=== PATIENT | male | born 1940 | race African-American/Black ===

== ENCOUNTER 2017-11-06 09:17 | Emergency (ER) | payer MEDICARE, OTHER ==
[~2017-11-06 09:17] MED LIST: AMLO10TA2 PO; CELE100C PO; DICL100G18 TP; LISI1TAB5 PO; LISI40TA PO; METO-247 PO; OXYM10TA28 PO; OXYM40TA17 PO
[2017-11-06] MEDS ORDERED: oxyCODONE/APAP 10/325 1 TAB TABLET PO ONE (10:10)
[2017-11-06 10:51] LABS: BASO % 0 % (0-3); EOS % 0 % (0-3); HEMATOCRIT 40.9 % (39.0-53.0); HEMOGLOBIN 13.6 g/dL (13.0-17.5); LYMPH % 12 % (24-48); MEAN CORPUSCULAR HEMOGLOBIN 28 pg (25-35); MEAN CORPUSCULAR HGB CONC 33 g/dL (31-37); MEAN CORPUSCULAR VOLUME 84 fL (79-100); MONO # 1.3 x10^3/uL (0.0-1.1); MONO % 17 % (0-9); NEUT # 5.4 x10^3uL (1.8-7.7); NEUT % 70 % (31-73); PLATELET COUNT 301 x10^3/uL (140-400); RED BLOOD COUNT 4.88 x10^6/uL (4.30-5.70); RED CELL DISTRIBUTION WIDTH 17.2 % (11.5-14.5); WHITE BLOOD COUNT 7.7 x10^3/uL (4.0-11.0)
[2017-11-06 10:58] LABS: C REACTIVE PROTEIN 88.3 mg/L (0-3.3); URIC ACID 5.7 mg/dL (3.5-7.2)
--- NOTE | 2017-11-06 11:02 | RAD ---
Indication: Left wrist pain and swelling since Monday. No known injury TECHNIQUE: 3 views of the left wrist. Please note that images are marked right however the left wrist was imaged per technologist. COMPARISON: None FINDINGS: Mild diffuse osteopenia. No acute fracture or dislocation. Moderate joint space narrowing and productive changes are seen at first CMC joint. No soft tissue abnormality. IMPRESSION: Moderate first CMC joint osteoarthritis. Electronically signed by: Thaddeus Trivedi DO (11/06/2017 10:59 AM) [facility]
[2017-11-06 11:05] LABS: ALBUMIN 3.3 g/dL (3.4-5.0); ALBUMIN/GLOBULIN RATIO 0.7 (1.0-1.7); CREATININE 0.9 mg/dL (0.7-1.3); GFR 99.5; TOTAL BILIRUBIN 0.8 mg/dL (0.2-1.0)
[2017-11-06 11:06] LABS: POTASSIUM 2.7 mmol/L (3.5-5.1)
[2017-11-06] MEDS ORDERED: FUROSEMIDE 40 MG/4 ML VIAL IVP ONE (11:30)
[2017-11-06] MEDS ORDERED: POTASSIUM CHLORIDE 20 MEQ TABLET.ER. PO ONE (11:45)
--- NOTE | 2017-11-06 11:48 | RAD ---
Left upper extremity venous duplex study Clinical History: Left upper extremity pain Technique: Using a combination of real time ultrasound imaging and color-flow and pulse Doppler imaging techniques, including spectral analysis, graded compression and augmentation, duplex evaluation of the deep venous system of the left upper extremity was performed. Multiple images were obtained. Findings: There is no sonographic evidence of deep venous thrombosis involving the visualized deep venous structures of the left upper extremity Impression: No evidence of deep venous thrombosis involving the left upper extremity Electronically signed by: Lucas Saldivar MD (11/06/2017 11:44 AM) [id number]
--- NOTE | 2017-11-06 11:49 | ED.ADGEN ---
Past History Past Medical History: Hypertension Past Surgical History: No Surgical History Alcohol Use: None Drug Use: None Adult General Chief Complaint Chief Complaint Left wrist pain, swelling. HPI HPI Patient is a 77-year-old Afro-Citizen Of [place] male presents with left wrist pain tenderness and swelling starting yesterday. Patient states he first noted symptoms yesterday after sleeping on left wrist. Reports increased pain swelling progressing to distal forearm. She swelling tenderness with pain on palpation and range of motion. Denies fall, injury, history of gout, rheumatoid arthritis or other inflammatory conditions. No history of DVT or PE. Currently on Coumadin. No fevers chills, nausea vomiting or sweats. No other acute symptoms or complaints.[] Review of Systems Review of Systems Review symptoms as per history of present illness. All other review symptoms are negative.] All other systems were reviewed and found to be within normal limits, except as documented in this note. Current Medications Current Medications Current Medications Medications (Trade) Dose Ordered Sig/Dionisio Start Time Stop Time Status Last Admin Dose Admin Furosemide (Lasix) 40 mg 1X ONCE 11/06/17 11:30 11/06/17 11:31 DC Oxycodone/ Acetaminophen (Percocet 10/325) 1 tab 1X ONCE 11/06/17 10:10 11/06/17 10:11 DC 11/06/17 10:13 1 TAB Potassium Chloride (Klor-Con) 40 meq 1X ONCE 11/06/17 11:45 11/06/17 11:46 Allergies Allergies Allergies Coded Allergies Type Severity Reaction Last Updated Verified penicillin Adverse Reaction Intermediate 04/03/15 Yes Physical Exam Physical Exam Constitutional: Well developed, well nourished, no acute distress, non-toxic appearance. [] HENT: Normocephalic, atraumatic, bilateral external ears normal, oropharynx moist, no oral exudates, nose normal. [] Eyes: PERRLA, EOMI, conjunctiva normal, no discharge. [] Neck: Normal range of motion, no tenderness, supple, no stridor. [] Cardiovascular:Heart rate regular rhythm, no murmur [] Lungs & Thorax: Bilateral breath sounds clear to auscultation [] Abdomen: Bowel sounds normal, soft, no tenderness, no masses, no pulsatile masses. [] Skin: Appropriate for ethnicity. [] Back: No tenderness, no CVA tenderness. [] Extremities: Left upper extremity, diffuse left wrist pain, swelling, tenderness , with pain range of motion. Swelling spreads to hand and to distal forearm. Also has left shoulder and elbow pain, tenderness. Radial pulse 2+ and symmetric.. [] Neurologic: Alert and oriented X 3, left upper extremity, no motor weakness or loss of sensation.[] Psychologic: Affect normal, judgement normal, mood normal. [] Current Patient Data Vital Signs Vital Signs Date Time Temp Pulse Resp B/P (MAP) Pulse Ox O2 Delivery O2 Flow Rate FiO2 11/06/17 09:34 99.0 94 24 99 Room Air Lab Results Laboratory Tests Test 11/06/17 10:30 White Blood Count 7.7 x10^3/uL (4.0-11.0) Red Blood Count 4.88 x10^6/uL (4.30-5.70) Hemoglobin 13.6 g/dL (13.0-17.5) Hematocrit 40.9 % (39.0-53.0) Mean Corpuscular Volume 84 fL (79-100) Mean Corpuscular Hemoglobin 28 pg (25-35) Mean Corpuscular Hemoglobin Concent 33 g/dL (31-37) Red Cell Distribution Width 17.2 % (11.5-14.5) H Platelet Count 301 x10^3/uL (140-400) Neutrophils (%) (Auto) 70 % (31-73) Lymphocytes (%) (Auto) 12 % (24-48) L Monocytes (%) (Auto) 17 % (0-9) H Eosinophils (%) (Auto) 0 % (0-3) Basophils (%) (Auto) 0 % (0-3) Neutrophils # (Auto) 5.4 x10^3uL (1.8-7.7) Lymphocytes # (Auto) 1.0 x10^3/uL (1.0-4.8) Monocytes # (Auto) 1.3 x10^3/uL (0.0-1.1) H Eosinophils # (Auto) 0.0 x10^3/uL (0.0-0.7) Basophils # (Auto) 0.0 x10^3/uL (0.0-0.2) Sodium Level 134 mmol/L (136-145) L Potassium Level 2.7 mmol/L (3.5-5.1) *L Chloride Level 94 mmol/L (98-107) L Carbon Dioxide Level 33 mmol/L (21-32) H Anion Gap 7 (6-14) Blood Urea Nitrogen 9 mg/dL (8-26) Creatinine 0.9 mg/dL (0.7-1.3) Estimated GFR (Cockcroft-Gault) 99.5 BUN/Creatinine Ratio 10 (6-20) Glucose Level 184 mg/dL (70-99) H Uric Acid 5.7 mg/dL (3.5-7.2) Calcium Level 9.0 mg/dL (8.5-10.1) Total Bilirubin 0.8 mg/dL (0.2-1.0) Aspartate Amino Transferase (AST) 23 U/L (15-37) Alanine Aminotransferase (ALT) 21 U/L (16-63) Alkaline Phosphatase 146 U/L (46-116) H C-Reactive Protein 88.3 mg/L (0-3.3) H IN-Uvr-P-Type Natriuretic Peptide 1218 pg/mL (0-449) H Total Protein 8.0 g/dL (6.4-8.2) Albumin 3.3 g/dL (3.4-5.0) L Albumin/Globulin Ratio 0.7 (1.0-1.7) L EKG EKG [] Radiology/Procedures Radiology/Procedures [L Wrist: No acute findings per radiology report] Venous Doppler ultrasound left upper extremity: Negative for DVT Course & Med Decision Making Course & Med Decision Making Pertinent Labs and Imaging studies reviewed. (See chart for details) [Wrist pain, tenderness, warmth and swelling with elevated inflammatory markers , concern for septic arthritis versus reactive inflammatory joint disease. Patient will be transferred to [facility] with anticipated join aspiration. Decisions was made to hold antibiotics will orthopedic evaluation/ join aspiration.Potassium replaced. Dr. Hughes on-call for the hospitalist service agrees to accept to hospitalist service. Final Impression Final Impression [1. Left wrist swelling 2. hypokalemia] Dragon Disclaimer Dragon Disclaimer This electronic medical record was generated, in whole or in part, using a voice recognition dictation system. PAULIE VALENZUELA DO Nov 06, 2017 11:48
[2017-11-06 12:23] VITALS: BP 200/109
[2017-11-06] MEDS ORDERED: cloNIDine HCL 0.1 MG TABLET PO ONE (12:45)
--- NOTE | 2017-11-06 15:43 | EKG ---
[address] [address] Test Date: 2017-11-06 Test Time: 10:35:00 Pat Name: KALI POSADAS Department: Room: Gender: M Director Strategy: SANDRA : 1940 Requested By: PAULIE VALENZUELA Order Number: [id number] Reading MD: Chau Leal Measurements Intervals [place] Rate: 77 P: 32 NE: 126 QRS: -56 QRSD: 90 T: -48 QT: 398 QTc: 452 Interpretive Statements SINUS RHYTHM LEFT ATRIAL ABNORMALITY ABNORMAL LEFT AXIS DEVIATION LEFT ANTERIOR FASCICULAR BLOCK QRS(T) CONTOUR ABNORMALITY CONSISTENT WITH SEPTAL INFARCT PROBABLY OLD T ABNORMALITY IN ANTEROLATERAL LEADS INFERIOR LEADS ABNORMAL ECG RI6.01 Compared to ECG 04/03/2015 14:47:01 Electronically Signed On 11-08-2017 12:48:41 CDT by Chau Leal
== END 2017-11-06 13:50 | disposition short-term general hospital (02) ==
LOC: ER 09:17
DX: R22.32 Localized swelling, mass and lump, left upper limb (principal); M25.532 Pain in left wrist; E87.6 Hypokalemia; M25.512 Pain in left shoulder; M25.522 Pain in left elbow; I10 Essential (primary) hypertension; Z88.0 Allergy status to penicillin
CPT/HCPCS: 36415; 73110; 80053; 83880; 84550; 85025; 86140; 93005; 93971; 96374; 99285; J1940

== ENCOUNTER → 2018-08-13 | Outpatient (CLI) | payer MEDICARE, OTHER ==
[~2018-08-13] MED LIST changes: -AMLO10TA2 PO; +AMLO10TA8 PO
--- NOTE | 2018-08-13 13:44 | RAD ---
Ultrasound arterial Doppler INDICATION: Bilateral lower extremity pain, pvd TECHNIQUE: Grayscale, color Doppler and spectral waveform ultrasound images of the lower extremities arteries obtained. COMPARISON: None FINDINGS: Right-sided: Biphasic waveforms are seen in the PSYCHOLOGY TECHNICIAN and profunda femoral artery without significantly elevated velocity. Monophasic waveforms are seen in the SFA without significant velocities. Monophasic waveforms seen in the popliteal artery, ENVIRONMENTAL HEALTH INSPECTOR, peroneal artery and CLAUDIA without elevated velocity. Significantly dampened waveforms are seen in the dorsalis pedis artery. Left side: Prominent but not pathologically enlarged left groin lymph nodes are seen likely reactive. Biphasic waveforms are seen in the PSYCHOLOGY TECHNICIAN and profunda femoris artery without elevated velocity. Biphasic waveforms are seen in the SFA without elevated velocity. Biphasic waveforms are seen in the popliteal artery without elevated velocity. Biphasic waveforms seen in the CLAUDIA with mildly elevated velocity of 214 cm/s. Monophasic waveforms are seen in the PDA without elevated velocity. Monophasic waveforms are seen in the peroneal artery without elevated velocity. There is reversal of flow seen in the dorsalis pedis artery with velocity of 37 cm/s. This is new from previous exam. KAYLAH: Right KAYLAH 0.74. Left KAYLAH 0.68. IMPRESSION: 1. 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 Moderate focal stenosis in the proximal left CLAUDIA. 2. New reversal of waveform in the left dorsalis pedis artery. 3. Bilateral abnormal KAYLAH. Electronically signed by: Thaddeus Trivedi DO (08/13/2018 1:41 PM) [facility]
--- NOTE | 2018-08-13 13:44 | RAD ---
Ultrasound arterial Doppler INDICATION: Bilateral lower extremity pain, pvd TECHNIQUE: Grayscale, color Doppler and spectral waveform ultrasound images of the lower extremities arteries obtained. COMPARISON: None FINDINGS: Right-sided: Biphasic waveforms are seen in the HOB MILL OPERATOR and profunda femoral artery without significantly elevated velocity. Monophasic waveforms are seen in the SFA without significant velocities. Monophasic waveforms seen in the popliteal artery, CDL PROGRAM COORDINATOR, peroneal artery and CLAUDIA without elevated velocity. Significantly dampened waveforms are seen in the dorsalis pedis artery. Left side: Prominent but not pathologically enlarged left groin lymph nodes are seen likely reactive. Biphasic waveforms are seen in the HOB MILL OPERATOR and profunda femoris artery without elevated velocity. Biphasic waveforms are seen in the SFA without elevated velocity. Biphasic waveforms are seen in the popliteal artery without elevated velocity. Biphasic waveforms seen in the CALUDIA with mildly elevated velocity of 214 cm/s. Monophasic waveforms are seen in the PDA without elevated velocity. Monophasic waveforms are seen in the peroneal artery without elevated velocity. There is reversal of flow seen in the dorsalis pedis artery with velocity of 37 cm/s. This is new from previous exam. KAYLAH: Right KAYLAH 0.74. Left KAYLAH 0.68. IMPRESSION: 1. 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 Moderate focal stenosis in the proximal left CLAUDIA. 2. New reversal of waveform in the left dorsalis pedis artery. 3. Bilateral abnormal KAYLAH. Electronically signed by: Thaddeus Trivedi DO (08/13/2018 1:41 PM) [facility]
== END | disposition home or self-care (01) ==
LOC: US 08:51
PROVIDERS: ATTEND Family Medicine
DX: I70.293 Other atherosclerosis of native arteries of extremities, bilateral legs (principal); I65.22 Occlusion and stenosis of left carotid artery; I77.9 Disorder of arteries and arterioles, unspecified
CPT/HCPCS: 93922; 93925

== ENCOUNTER → 2018-10-16 | Outpatient (CLI) | payer OTHER ==
[~2018-10-16] MED LIST changes: +IOHEXOL 300 MG/ML 75 ML VIAL. IV ONE
--- NOTE | 2018-10-16 18:44 | RAD ---
Renal ultrasound and renal artery Doppler dated 10/16/2018. No comparison available. CLINICAL INDICATION: Hypertension. FINDINGS: Right kidney measures 9 cm in length. Left kidney measures 9.7 cm in length. No hydronephrosis. No apparent mass or shadowing calculus. Color-flow and spectral waveform analysis of the renal arteries show normal velocities and waveforms on the right. The mid left renal artery is not well visualized. The proximal and distal vessel shows normal velocities and waveforms. Renal artery to aortic ratios are within the range of normal measuring 1.8 bilaterally. Urinary bladder unremarkable. IMPRESSION: 1. No evidence of hemodynamically significant renal artery stenosis. 2. Normal grayscale appearance of the kidneys with no evidence of hydronephrosis. Electronically signed by: Eduardo Turcios MD (10/16/2018 6:41 PM) [facility]
--- NOTE | 2018-10-16 22:32 | RAD ---
MR#: [id number] Date of Study: 10/16/2018 Ordering Physician: TOM BROWNING, Referring Physician: TOM BROWNING, Tech: Cathy Harrison RDMS, RVT, RTR APPROVED REPORT Patient Location: OUT-PATIENT Laterality:Bilateral Indications Bruit Grayscale images of the bilateral common carotid, external carotid, internal carotid vessels reveals mild diffuse plaque intimal wall hyperplasia. Spectral waveforms and color Doppler do not reveal any obvious evidence of obstructive disease. Overa ll 0 to less than 50% stenosis by velocity criteria. Normal ICA to CCA ratios bilaterally. Bilateral vertebral velocities are antegrade. Critical Notification Critical Value: No <Conclusion> 1. No significant carotid occlusive disease bilaterally. Signed by : Tom Browning, Electronically Approved : 10/16/2018 22:32:06
== END | disposition home or self-care (01) ==
LOC: US 07:45
PROVIDERS: ATTEND Internal Medicine Cardiovascular Disease
DX: I10 Essential (primary) hypertension (principal); I73.9 Peripheral vascular disease, unspecified
CPT/HCPCS: 76770; 80061; 93880

== ENCOUNTER 2019-07-13 09:15 | Emergency (ER) | payer OTHER ==
[~2019-07-13] VITALS: Ht 180.3 cm; Wt 61.4 kg
[~2019-07-13 09:15] MED LIST changes: -IOHEXOL 300 MG/ML 75 ML VIAL. IV ONE; +LISI1TAB19 PO; -LISI1TAB5 PO
[2019-07-13 09:40] VITALS: BP 139/66
--- NOTE | 2019-07-13 09:51 | PHYS DOC ---
Past History Past Medical History: Hypertension Past Surgical History: No Surgical History Alcohol Use: None Drug Use: None Adult General Chief Complaint Chief Complaint: FOOT INJURY PAIN HPI HPI 79-year-old male presents with right foot pain. The patient has been on long- term pain management with Opana 10mg tablets until May. He tells me his last dose was June 03. He is no longer taking this medication because his doctor left the practice. He has not been to get back in to see a new person. He presents today because he has had increasing right foot pain. Screening last night. He is also concerned as it looks little more swollen than the left. He's had multiple toe amputations and is concerned for infection. He does have open wounds on his fourth and fifth toes on the right foot. Patient primarily uses a power chair to get around. Review of Systems Review of Systems Constitutional: Denies fever or chills [] Eyes: Denies change in visual acuity, redness, or eye pain [] HENT: Denies nasal congestion or sore throat [] Respiratory: Denies cough or shortness of breath [] Cardiovascular: No additional information not addressed in HPI [] GI: Denies abdominal pain, nausea, vomiting, bloody stools or diarrhea [] : Denies dysuria or hematuria [] Musculoskeletal: Right foot and toe pain[] Integument: Denies rash or skin lesions [] Neurologic: Denies headache, focal weakness or sensory changes [] Endocrine: Denies polyuria or polydipsia [] All other systems were reviewed and found to be within normal limits, except as documented in this note. Allergies Allergies Allergies Coded Allergies Type Severity Reaction Last Updated Verified penicillin Adverse Reaction Intermediate 10/16/18 Yes Physical Exam Physical Exam Constitutional: Well developed, well nourished, no acute distress, non-toxic appearance. [] HENT: Normocephalic, atraumatic, bilateral external ears normal, oropharynx moist, no oral exudates, nose normal. [] Eyes: PERRLA, EOMI, conjunctiva normal, no discharge. [] Neck: Normal range of motion, no tenderness, supple, no stridor. [] Cardiovascular:Heart rate regular rhythm, no murmur [] Lungs & Thorax: Bilateral breath sounds clear to auscultation [] Abdomen: Bowel sounds normal, soft, no tenderness, no masses, no pulsatile masses. [] Skin: Warm, dry, no erythema, no rash. [] Back: No tenderness, no CVA tenderness. [] Extremities: Multiple toe amputations of both feet. Right foot with tenderness of second fourth and fifth digit, erythematous, but not warm. The patient's lower extremities are cool to the touch bilaterally.[] Neurologic: Alert and oriented X 3, normal motor function, normal sensory function, no focal deficits noted. [] Psychologic: Affect normal, judgement normal, mood normal. [] EKG EKG [] Radiology/Procedures Radiology/Procedures [] Impressions: EXAM: 3 views of the right toes DATE: 07/13/2019 9:47 AM INDICATION: Diabetic foot ulcer. Soft tissue swelling, pain, clinical concern for osteomyelitis. COMPARISON: No Prior FINDINGS: Moderate soft tissue swelling seen about the forefoot. Amputation changes are seen through the first toe proximal phalanx. No definite erosive/destructive change or periostitis is seen to suggest acute osteomyelitis. No evidence of acute fracture or dislocation. Decreased bone mineral density. Joint spaces are grossly preserved. IMPRESSION: 1. No definite erosive/destructive change or periostitis is seen to suggest acute osteomyelitis. However MRI is more sensitive. Electronically signed by: Misael Rodriguez MD (07/13/2019 10:27 AM) [id number] DICTATED AND SIGNED BY: MISAEL RODRIGUEZ MD DATE: 07/13/19 1027 CC: PAULIE YADAV DO; PCP,NO ~ Course & Med Decision Making Course & Med Decision Making Pertinent Labs and Imaging studies reviewed. (See chart for details) The patient's vital signs and temperature are normal. I am concerned that he is at risk for skin infection. Other than the pain and swelling, I am not fully convinced this is cellulitis. I do believe his risk factors as well as my exam justify prophylactic antibiotics. I will also place the patient on Neurontin as he has not tried this. The pain that he is describing in his foot is "an electrical shooting pain". This may be more related to his diabetes has neuropathy versus infection. He is going to be seen by his doctor on Monday. I believe this is reasonable follow-up unless the patient's condition worsens. If it does, he will return to the emergency room. He is stable for discharge at this time. I will give him his first dose of Neurontin as well as [place] 5/325 in the ED. I will not discharge him on pain medication as he has a doctor who can prescribe this. [] Heladioon Disclaimer Reymundo Disclaimer This electronic medical record was generated, in whole or in part, using a voice recognition dictation system. Departure Departure: Impression: Primary Impression: Neuropathic pain of foot Disposition: HOME, SELF-CARE Condition: STABLE Referrals: PCP,NO (PCP) Patient Instructions: Pain, Neuropathic-Brief Scripts Gabapentin (NEURONTIN ) 300 Mg Capsule 300 MG PO TID for NEUROGENIC PAIN for 30 Days, #90 CAP start with 300mg 1x a day on day 1, then 300mg BID on day 2, then 300mg TID Prov: PAULIE YADAV DO 07/13/19 Problem Qualifiers Primary Impression: Neuropathic pain of foot Laterality: right Qualified Codes: M79.2 - Neuralgia and neuritis, unspecified PAULIE YADAV DO Jul 13, 2019 09:51
--- NOTE | 2019-07-13 10:30 | RAD ---
EXAM: 3 views of the right toes DATE: 07/13/2019 9:47 AM INDICATION: Diabetic foot ulcer. Soft tissue swelling, pain, clinical concern for osteomyelitis. COMPARISON: No Prior FINDINGS: Moderate soft tissue swelling seen about the forefoot. Amputation changes are seen through the first toe proximal phalanx. No definite erosive/destructive change or periostitis is seen to suggest acute osteomyelitis. No evidence of acute fracture or dislocation. Decreased bone mineral density. Joint spaces are grossly preserved. IMPRESSION: 1. No definite erosive/destructive change or periostitis is seen to suggest acute osteomyelitis. However MRI is more sensitive. Electronically signed by: Misael Rodriguez MD (07/13/2019 10:27 AM) [id number]
[2019-07-13] MEDS ORDERED: GABA-586 PO (10:43)
[2019-07-13] MEDS ORDERED: HYDROcodone/APAP 5/325MG 1 TAB TABLET PO ONE (11:00)
[2019-07-13] MEDS ORDERED: GABAPENTIN 100 MG CAPSULE. PO ONE ×2 (11:00→11:06)
[2019-07-13] MEDS ORDERED: HYDR-3165 PO (11:06)
[2019-07-13] MEDS ORDERED: HYDROcodone/APAP 5/325MG 1 TAB TABLET ONE (13:18)
== END 2019-07-13 11:06 | disposition home or self-care (01) ==
LOC: ER 09:15
DX: M79.2 Neuralgia and neuritis, unspecified (principal); M79.671 Pain in right foot; L53.9 Erythematous condition, unspecified; I10 Essential (primary) hypertension; Z88.0 Allergy status to penicillin
CPT/HCPCS: 73660; 99283

== ENCOUNTER → 2019-12-10 | Outpatient (CLI) | payer OTHER ==
[~2019-12-10] MED LIST changes: +GABA-586 PO; +HYDR-3165 PO
--- NOTE | 2019-12-10 09:55 | RAD ---
Right lower extremity arterial ultrasound History:Peripheral arterial disease COMPARISON: August 13, 2018 Findings: Multiple grayscale, color, and duplex spectral analysis sonographic images were acquired of the right lower extremity arteries. There is now patent graft extending beginning at the level of the common femoral artery extending to the mid posterior tibial artery in the calf although monophasic waveforms throughout the graft and also the right common femoral artery. Right peroneal and dorsalis pedis arteries are not seen on this exam although were visualized previously. There are monophasic waveforms of the visualized [place] vessels. Velocities in cm/sec: Common femoral artery 301 (previously 145) Profunda femoris artery 145 Proximal SFA 60 Mid SFA 56 Distal SFA 60 Popliteal artery 143 Posterior tibial artery 36 proximally and 69 distally Peroneal artery not seen Anterior tibial artery 26 Dorsalis pedis artery not seen Graft: Proximal anastomosis 149 Proximal graft 176 Mid thigh region 153 Distal thigh region 139 Level of the knee 133 Proximal calf 41 Distal anastomosis 37 Impression: 1. Common femoral artery to mid posterior tibial artery graft is patent although monophasic waveforms present. There is also monophasic waveform of the right common femoral artery at which there is elevated velocity suggestive of proximal inflow stenosis. Peroneal and dorsalis pedis arteries are not seen and presumably occluded. There are also monophasic waveforms of the [place] vessels. Electronically signed by: Austin Boss MD (12/10/2019 9:53 AM) [id number]
== END ==
LOC: US 07:55
PROVIDERS: ATTEND Physician Assistant Medical
DX: I70.8 Atherosclerosis of other arteries (principal); I73.9 Peripheral vascular disease, unspecified
CPT/HCPCS: 93926

== ENCOUNTER 2021-09-12 19:42 | Emergency (ER) | payer OTHER ==
[~2021-09-12] VITALS: Ht 180.3 cm; Wt 55.3 kg
[~2021-09-12 19:42] MED LIST changes: +AMLO-187 PO; -AMLO10TA8 PO; -LISI1TAB19 PO; +LISI1TAB37 PO; -LISI40TA PO; +LISI40TA6 PO
[2021-09-12] MEDS ORDERED: IOHEXOL 350 MG/ML 100 ML VIAL. IV ONE (20:15)
[2021-09-12] MEDS ORDERED: CONTRAST GIVEN. MC PRN (20:15)
[2021-09-12] MEDS ORDERED: methylPREDNISolone SOD SUCC PF 125 MG/2 ML VIAL. IV ONE (20:15)
--- NOTE | 2021-09-12 20:20 | PHYS DOC ---
Past History Past Medical History: Diabetes, High Cholesterol, Hypertension (GALDINO SCHWARZ APRN) Past Surgical History: Other Additional Past Surgical Histo: back and ulcer sx (GALDINO SCHWARZ APRN) Alcohol Use: None Drug Use: None (GALDINO SCHWARZ APRN) General Adult EDM: Chief Complaint: SHORTNESS OF BREATH HPI: HPI: Patient is a 81-year-old male who presents to the emergency department for a 2- month history of shortness of breath. Patient also reports that he has had right lower extremity swelling. He denies a history of blood clots. He is a current occasional smoker. He reports a history of COPD, hypertension, diabetes and high cholesterol. He denies any home oxygen use. He reports that he used to use inhalers for his COPD but does not have any currently. Patient denies nausea, vomiting, chest pain, fevers, cough. He is tachycardic at 105, tachypneic with a respiration rate of 29, no hypoxia or oxygen requirements. Primary care provider is Dr. Wilder. (GALDINO SCHWARZ APRN) Review of Systems: Review of Systems: Constitutional: See HPI Respiratory: See HPI Cardiovascular: See HPI GI: See HPI Endocrine: See HPI (GALDINO SCHWARZ APRN) Current Medications: Current Meds: Current Medications Medications (Trade) Dose Ordered Sig/Dionisio Start Time Stop Time Status Last Admin Dose Admin Info (Do NOT chart on this entry -- for MONITORING) 1 each PRN DAILY PRN 09/12/21 20:15 09/14/21 20:14 Iohexol (Omnipaque 350 Mg/ml) 100 ml 1X ONCE 09/12/21 20:15 09/12/21 20:16 Methylprednisolone Sodium Succinate (SOLU-Medrol 125MG VIAL) 125 mg 1X ONCE 09/12/21 20:15 09/12/21 20:16 (GALDINO SCHWARZ APRN) Allergies: Allergies: Allergies Coded Allergies Type Severity Reaction Last Updated Verified penicillin Adverse Reaction Intermediate 10/16/18 Yes (GALDINO SCHWARZ APRN) Physical Exam: PE: Constitutional: Well developed, well nourished, no acute distress, non-toxic appearance. [] HENT: Normocephalic, atraumatic, bilateral external ears normal, oropharynx moist, no oral exudates, nose normal. [] Eyes: PERRL, EOMI, conjunctiva normal, no discharge. [] Neck: Normal range of motion, no tenderness, supple, no stridor. [] Cardiovascular:Heart rate tachycardic rhythm, no murmur [] Lungs & Thorax: Bilateral breath sounds clear to auscultation [] Abdomen: Bowel sounds normal, soft, no tenderness, no masses, no pulsatile masses. [] Skin: Warm, dry, no erythema, no rash. [] Back: No tenderness, normal range of motion Extremities: No tenderness, no cyanosis, no clubbing, ROM intact, 2+ pitting edema noted to right lower extremity, no edema noted to left lower extremity Neurologic: Alert and oriented X 3, normal motor function, normal sensory function, no focal deficits noted. [] Psychologic: Affect normal, judgement normal, mood normal. [] (GALDINO SCHWARZ APRN) Current Patient Data: Labs: Laboratory Tests Test 09/12/21 20:02 White Blood Count 6.0 x10^3/uL Red Blood Count 4.41 x10^6/uL Hemoglobin 8.5 g/dL Hematocrit 28.5 % Mean Corpuscular Volume 65 fL Mean Corpuscular Hemoglobin 19 pg Mean Corpuscular Hemoglobin Concent 30 g/dL Red Cell Distribution Width 20.9 % Platelet Count 348 x10^3/uL Neutrophils (%) (Auto) 55 % Lymphocytes (%) (Auto) 32 % Monocytes (%) (Auto) 11 % Eosinophils (%) (Auto) 2 % Basophils (%) (Auto) 0 % Neutrophils # (Auto) 3.3 x10^3uL Lymphocytes # (Auto) 1.9 x10^3/uL Monocytes # (Auto) 0.7 x10^3/uL Eosinophils # (Auto) 0.1 x10^3/uL Basophils # (Auto) 0.0 x10^3/uL Segmented Neutrophils % 47 % Lymphocytes % 42 % Monocytes % 11 % Platelet Estimate Adequate Hypochromasia Mod Anisocytosis Mod Microcytosis Mod Target Cells Few Sodium Level 144 mmol/L Potassium Level 4.4 mmol/L Chloride Level 109 mmol/L Carbon Dioxide Level 25 mmol/L Anion Gap 10 Blood Urea Nitrogen 16 mg/dL Creatinine 1.2 mg/dL Estimated GFR (Cockcroft-Gault) 70.7 BUN/Creatinine Ratio 13 Glucose Level 115 mg/dL Calcium Level 9.0 mg/dL Total Bilirubin 0.6 mg/dL Aspartate Amino Transf (AST/SGOT) 39 U/L Alanine Aminotransferase (ALT/SGPT) 25 U/L Alkaline Phosphatase 159 U/L Troponin I High Sensitivity 889 ng/L NV-Eyq-H-Type Natriuretic Peptide 15107 pg/mL Total Protein 7.7 g/dL Albumin 3.5 g/dL Albumin/Globulin Ratio 0.8 Current Medications Medications (Trade) Dose Ordered Sig/Dionisio Route PRN Reason Start Time Stop Time Status Last Admin Dose Admin Methylprednisolone Sodium Succinate (SOLU-Medrol 125MG VIAL) 125 mg 1X ONCE IV 09/12/21 20:15 09/12/21 20:16 DC 09/12/21 20:47 Iohexol (Omnipaque 350 Mg/ml) 100 ml 1X ONCE IV 09/12/21 20:15 09/12/21 20:16 DC 09/12/21 20:59 Info (Do NOT chart on this entry -- for MONITORING) 1 each PRN DAILY PRN MC SEE COMMENTS 09/12/21 20:15 09/14/21 20:14 Aspirin (Aspirin Chewable) 324 mg 1X ONCE PO 09/12/21 21:00 09/12/21 21:01 DC 09/12/21 20:50 Aspirin (Aspirin Chewable) 81 mg STK-MED ONCE .ROUTE 09/12/21 20:50 09/12/21 20:50 DC (GALDINO SCHWARZ LOGISTICIAN) EKG: EKG: EKG performed by ER staff at 2040 shows sinus tachycardia with a rate of 103, nonspecific changes noted, no STEMI read by Dr. Chaudhary. [] (GALDINO SCHWARZ LOGISTICIAN) Radiology/Procedures: Radiology/Procedures: []PROCEDURE: CT ANGIOGRAPHY CHEST Exam: CT of chest with contrast INDICATION: Short of air, tachycardia TECHNIQUE: Sequential axial images through the chest obtained following the administration of 100 mL of Isovue-370 IV contrast. Sagittal and coronal reformatted images were reconstructed from the axial data and reviewed. Exposure: One or more of the following in the visualized dose reduction techniques were utilized for this examination: 1. Automated exposure control 2. Adjustment of the MA and/or KV according to patient size 3. Use of iterative of reconstructive technique Comparisons: 04/03/2015 FINDINGS: Visualized portions of the thyroid are unremarkable. No enlarged mediastinal lymph nodes are identified. Heart size is at the upper limits of normal. No pericardial effusion. Mild coronary artery calcium lesions. Thoracic aorta has a normal course and caliber. Pulmonary artery is not enlarged. No pulmonary embolus identified within the main, lobar or segmental pulmonary arteries. Airways are patent. No consolidation or pneumothorax. No suspicious lung nodules. Small to moderate bilateral pleural effusions. Visualized upper abdomen is unremarkable. No suspicious osseous lesions or acute fractures. IMPRESSION: 1. No pulmonary embolus identified within the main, lobar or segmental pulmonary arteries. 2. Small bilateral pleural effusions. Electronically signed by: Eric Lemus MD (09/12/2021 9:28 PM) [facility] DICTATED AND SIGNED BY: ERIC LEMUS MD DATE: 09/12/212120 CC: GEORGETTE CHAUDHARY MD; GALDINO SCHWARZ APRN; ROSEANNE CHAN ~ PROCEDURE: PORTABLE CHEST 1V INDICATION: Reason: soa / Spl. Instructions: / History: COMPARISON: 2014 FINDINGS: Single view of chest obtained. Blunting of the costophrenic angles with patchy opacities at the lung bases and mild interstitial prominence. Enlarged cardiac silhouette. There is a couple of perihilar nodules or vessels seen on end. For example on the right measuring 11 mm. IMPRESSION: * Small bilateral pleural effusions with adjacent airspace consolidation which can be seen with atelectasis or infiltrate. There is also some mild interstitial opacities bilaterally which can be seen with mild edema or mild interstitial infiltrate. Electronically signed by: Bobby Ochoa MD (09/12/2021 9:41 PM) [id number] DICTATED AND SIGNED BY: BOBBY OCHOA MD DATE: 09/12/212137 CC: GEORGETTE CHAUDHARY MD; GALDINO SCHWARZ APRN; ROSEANNE CHAN ~ (GALDINO SCHWARZ APRN) Heart Score: C/O Chest Pain: No Risk Factors: Risk Factors: DM, Current or recent (<one month) smoker, HTN, HLP, family history of CAD, obesity. Risk Scores: Score 0 - 3: 2.5% MACE over next 6 weeks - Discharge Home Score 4 - 6: 20.3% MACE over next 6 weeks - Admit for Clinical Observation Score 7 - 10: 72.7% MACE over next 6 weeks - Early Invasive Strategies (GALDINO SCHWARZ APRN) Course & Med Decision Making: Course & Med Decision Making Pertinent Labs and Imaging studies reviewed. (See chart for details) [] Patient resents to the emergency department for a 2-month history of shortness of breath with a history of COPD. Patient's Wells score for PE is 4.5 indicating moderate risk. Due to that, CT angio of his chest was ordered to rule out pulmonary embolism. Work-up also included blood work including troponin, EKG, chest x-ray. He was treated with IV steroids. Patient was noted to have anemia with a hemoglobin of 8.5 and hematocrit of 28.5 which is new for him when compared to previous lab findings. [place] [address] which is elevated compared to previous lab findings. Elevated troponin of 889. Consulted supervising physician. Patient did report that his right lower leg swelling was new for him but as I look through his previous ER visits it appears that he has chronic right lower leg swelling. Patient was given [address] angio chest does not show any PEs but does show pleural effusions. Patient will need to be transferred to [facility] for non-STEMI. I contacted cardiology at [facility] spoke to Dr. Covarrubias who agreed that patient will need to be admitted for serial troponins. Nursing pleating supervisor this facility may have no beds available for patient. Patient will need to be transferred to [facility]. I spoke with Dr. Craft who agreed to accept the patient under his services for anemia, CHF and non-STEMI. ER bridge orders placed. (GALDINO SCHWARZ APRN) Course & Med Decision Making Did not see or evaluate patient. Did not discuss patient with [facility]. Generally agree wit BOOK SEWER's work-up and disposition per note. (GEORGETTE CHAUDHARY MD) Heladioon Disclaimer: Dragjustin Disclaimer: This electronic medical record was generated, in whole or in part, using a voice recognition dictation system. (GALDINO SCHWARZ APRN) Departure Departure: Impression: Primary Impression: NSTEMI (non-ST elevated myocardial infarction) Additional Impressions: Anemia Qualified Codes: D64.9 - Anemia, unspecified CHF (congestive heart failure) Qualified Codes: I50.9 - Heart failure, unspecified Disposition: 02 SHORT TERM [facility]OSPITAL Condition: STABLE Referrals: ROCIO,ROSEANNE M PA (PCP) GALDINO SCHWARZ APRN Sep 12, 2021 20:20 GEORGETTE CHAUDHARY MD Sep 12, 2021 23:12
[2021-09-12 20:35] LABS: CREATININE 1.2 mg/dL (0.7-1.3); GFR 70.7; POTASSIUM 4.4 mmol/L (3.5-5.1)
[2021-09-12 20:36] LABS: EOS # 0.1 x10^3/uL (0.0-0.7); EOS % 2 % (0-3); HEMOGLOBIN 8.5 g/dL (13.0-17.5); MEAN CORPUSCULAR HEMOGLOBIN 19 pg (25-35); MEAN CORPUSCULAR HGB CONC 30 g/dL (31-37); MEAN CORPUSCULAR VOLUME 65 fL (79-100)
[2021-09-12 20:48] LABS: ALBUMIN 3.5 g/dL (3.4-5.0); ALBUMIN/GLOBULIN RATIO 0.8 (1.0-1.7); TOTAL BILIRUBIN 0.6 mg/dL (0.2-1.0); TOTAL PROTEIN 7.7 g/dL (6.4-8.2)
[2021-09-12] MEDS ORDERED: ASPIRIN CHEWABLE 81 MG TABLET. ONE (20:50)
[2021-09-12] MEDS ORDERED: ASPIRIN CHEWABLE 81 MG TABLET. PO ONE (21:00)
[2021-09-12 21:04] LABS: BASO % 0 % (0-3); HEMATOCRIT 28.5 % (39.0-53.0); LYMPH # 1.9 x10^3/uL (1.0-4.8); LYMPH % 32 % (24-48); MONO % 11 % (0-9); NEUT # 3.3 x10^3uL (1.8-7.7); NEUT % 55 % (31-73); PLATELET COUNT 348 x10^3/uL (140-400); RED BLOOD COUNT 4.41 x10^6/uL (4.30-5.70); RED CELL DISTRIBUTION WIDTH 20.9 % (11.5-14.5)
[2021-09-12 21:05] LABS: MONO # 0.7 x10^3/uL (0.0-1.1)
[2021-09-12 21:06] LABS: % LYMPHS 42 % (24-48); % MONOS 11 % (0-10); % SEGS 47 % (35-66); PLT ESTIMATE ADEQUATE (ADEQUATE)
[2021-09-12 21:07] LABS: ANISOCYTOSIS MOD; HYPOCHROMIA MOD; MICROCYTOSIS MOD; TARGET CELLS FEW
--- NOTE | 2021-09-12 21:30 | RAD ---
Exam: CT of chest with contrast INDICATION: Short of air, tachycardia TECHNIQUE: Sequential axial images through the chest obtained following the administration of 100 mL of Isovue-370 IV contrast. Sagittal and coronal reformatted images were reconstructed from the axial data and reviewed. Exposure: One or more of the following in the visualized dose reduction techniques were utilized for this examination: 1. Automated exposure control 2. Adjustment of the MA and/or KV according to patient size 3. Use of iterative of reconstructive technique Comparisons: 04/03/2015 FINDINGS: Visualized portions of the thyroid are unremarkable. No enlarged mediastinal lymph nodes are identifi ed. Heart size is at the upper limits of normal. No pericardial effusion. Mild coronary artery calcium le sions. Thoracic aorta has a normal course and caliber. Pulmonary artery is not enlarged. No pulmonary embolus identified within the main, lobar or segmental pulmonary arteries. Airways are patent. No consolidation or pneumothorax. No suspicious lung nodules. Small to moderate bilateral pleural effusions. Visualized upper abdomen is unremarkable. No suspicious osseous lesions or acute fractures. IMPRESSION: 1. No pulmonary embolus identified within the main, lobar or segmental pulmonary arteries. 2. Small bilateral pleural effusions. Electronically signed by: Eric Kendall MD (09/12/2021 9:28 PM) [facility]
--- NOTE | 2021-09-12 21:43 | RAD ---
INDICATION: Reason: soa / Spl. Instructions: / History: COMPARISON: 2014 FINDINGS: Single view of chest obtained. Blunting of the costophrenic angles with patchy opacities at the lung bases and mild interstitial pro minence. Enlarged cardiac silhouette. There is a couple of perihilar nodules or vessels seen on end. For example on the right measuring 11 mm. IMPRESSION: * Small bilateral pleural effusions with adjacent airspace consolidation which can be seen with atel ectasis or infiltrate. There is also some mild interstitial opacities bilaterally which can be seen w ith mild edema or mild interstitial infiltrate. Electronically signed by: Skip Rees MD (09/12/2021 9:41 PM) [id number]
[2021-09-12 23:19] VITALS: BP 177/99
--- NOTE | 2021-09-13 03:55 | EKG ---
[address] [address] Test Date: 2021-09-12 Test Time: 20:38:32 Pat Name: KALI POSADAS Department: Room: Gender: [facility] Manager: WALTER : 1940 Requested By: GALDINO SCHWARZ Order Number: [id number] Reading MD: Kennedy Martinez Measurements Intervals Burton Rate: 104 P: 52 AR: 134 QRS: -15 QRSD: 84 T: 122 QT: 356 QTc: 468 Interpretive Statements SINUS TACHYCARDIA LEFTWARD AXIS QRS(T) CONTOUR ABNORMALITY CONSISTENT WITH ANTEROSEPTAL INFARCT PROBABLY OLD T ABNORMALITY IN ANTEROLATERAL LEADS ABNORMAL ECG Electronically Signed On 09-15-2021 18:23:21 CDT by Kennedy Martinez
== END 2021-09-12 23:40 | disposition short-term general hospital (02) ==
LOC: ER 19:42
DX: I21.4 Non-ST elevation (NSTEMI) myocardial infarction (principal); D64.9 Anemia, unspecified; I11.0 Hypertensive heart disease with heart failure; I50.9 Heart failure, unspecified; E78.00 Pure hypercholesterolemia, unspecified; E11.9 Type 2 diabetes mellitus without complications; J44.9 Chronic obstructive pulmonary disease, unspecified; Z20.822 Contact with and (suspected) exposure to COVID-19; Z88.0 Allergy status to penicillin
CPT/HCPCS: 36415; 71045; 71275; 80053; 83880; 84484; 85007; 85025; 87426; 93005; 96374; 99285; J2930; Q9967